=== PATIENT | female | born 1950 | race Caucasian/White ===

== ENCOUNTER → 2016-12-20 10:22 | Outpatient (CLI) | payer MEDICARE, OTHER | END | disposition home or self-care (01) | LOC: D.NM 10:22 | DX: E05.90 Thyrotoxicosis, unspecified without thyrotoxic crisis or storm (principal) ==

== ENCOUNTER → 2017-02-07 13:11 | Outpatient (CLI) | payer MEDICARE, OTHER | END | disposition home or self-care (01) | LOC: D.US 13:11 | DX: I12.9 Hypertensive chronic kidney disease with stage 1 through stage 4 chronic kidney disease, or unspecified chronic kidney disease (principal); N18.3 Chronic kidney disease, stage 3 (moderate); M19.90 Unspecified osteoarthritis, unspecified site; K21.9 Gastro-esophageal reflux disease without esophagitis; Z68.30 Body mass index [BMI] 30.0-30.9, adult ==

== ENCOUNTER → 2017-02-20 09:24 | Outpatient (CLI) | payer MEDICARE, OTHER | END | disposition home or self-care (01) | LOC: D.CT 09:24 | DX: N13.30 Unspecified hydronephrosis (principal); R93.429 Abnormal radiologic findings on diagnostic imaging of unspecified kidney ==

== ENCOUNTER → 2017-04-26 12:35 | Outpatient (CLI) | payer MEDICARE, OTHER | END | disposition home or self-care (01) | LOC: D.NM 04-25 14:00 | DX: N13.30 Unspecified hydronephrosis (principal) ==

== ENCOUNTER → 2017-05-16 05:18 | Day surgery (SDC) | payer MEDICARE, OTHER ==
[2017-05-15 09:15] LABS: HEMATOCRIT 42.7 % (36.0-48.0); HEMOGLOBIN 14.4 g/dL (12-16); MCH 28.6 pg (26.0-34.0); MCHC 33.7 g/dL (31.0-37.0); MCV 84.9 fL (80.0-100.0); MEAN PLATELET VOLUME 9.3 fL (7.4-10.4); RBC 5.03 10x6/uL (4.00-5.40); RDW 14.1 % (11.5-14.5); WBC 9.1 10x3/uL (4.8-10.8)
[2017-05-15 09:39] LABS: ANION GAP 11.1 mmol/L (8-16); CALCIUM 9.3 mg/dL (8.5-10.1); CARBON DIOXIDE 28.9 mmol/L (21.0-32.0); CREATININE - SERUM 1.2 mg/dL (0.6-1.3)
[~2017-05-16] VITALS: Ht 162.6 cm; Wt 78.5 kg
--- NOTE | ~2017-05-16 | OP ---
PATIENT NAME: RENAE FLANNERY MEDICAL RECORD: [id number] :46 LOCATION:[facility] ADMISSION DATE: SURGEON: GEMMA RIDLEY MD DATE OF OPERATION: 05/16/2017 SURGEON: Gemma Ridley MD ANESTHESIA: General anesthesia by Néstor Martinez CRNA PREOPERATIVE DIAGNOSES: Female stress urinary incontinence, midline cystocele Cadwell walker grade II, rectocele Cadwell walker grade I. PROCEDURE: Cystoscopy, cystocele repair with graft -- Breezewood Uphold, and then pubovaginal sling with graft B[employer]zewood Obtryx. FINDINGS: On cystoscopy single ureteral orifices bilaterally. No bladder tumors. No bladder injury. BLOOD LOSS: 15 mL. CLINICAL HISTORY: This is a 66-year-old female, A0, who has a complaint of female stress urinary incontinence. 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 A positive Rolly test was noted. She also has a grade II cystocele, no obvious uterine descent and a very mild grade I rectocele. Because the rectocele is not causing any symptoms, we did not repair it. She comes today to have the cystocele and stress incontinence repaired using mesh graft. She is aware of the risks of mesh graft use including infection, bleeding, dyspareunia, pain, injury to adjacent organs such as graft erosion or graft exposure. She is not allergic to any medications. She is given ampicillin/sulbactam 3 grams IV pinion and wheel truer to the OR. DESCRIPTION OF PROCEDURE: The patient was given induction of general anesthesia. She was then placed into dorsal lithotomy position and prepped and draped. A weighted speculum was placed to hold down the posterior vaginal wall. A 16-Yi Valdez catheter was placed into the bladder and put to bag drainage. The labia majora were retracted laterally using #2 nylon sutures, which were anchored to the medial thighs. Due to her vaginal stenosis, there was very limited working space in the vaginal cavity. A transverse incision was made about 1 cm proximal to the urethral meatus on the anterior vaginal wall. Prior to making this incision, the anterior vaginal wall was infiltrated with Pitressin solution. Twenty units of Pitressin was dissolved in 100 cc of injectable saline. This solution was used for hydrodissection. Once the incision was made, then the vaginal mucosal flaps were raised using Metzenbaum scissors. Anteriorly, we entered into the space of Retzius. We also cleaned off by breaking through the pubocervical fascia. We cleaned off the obturator membrane surface. Posteriorly, we entered into the presacral space and identified the ischial spines on both sides, which were the anchorage points to the sacrospinous ligaments. The ischial spine on the right side was much more difficult to find. Once this dissection was complete, we then proceeded with our cystocele repair. The Breezewood Uphold graft has a suture on each graft arm. This was loaded on to the [employer] suture delivery route driver. Land marking with the Capio had at the ischial spine. We then moved the [employer] suture delivery route driver, had 1 cm medial away from the ischial OPERATIVE REPORT [id number] RENAE FLANNERY spine to take a bite through the body of the sacrospinous ligament. The reason for moving away from the ischial spine is to avoid the internal pudendal arteries and the pudendal nerve, which wrapped around the ischial spine. This was done on each side. A good bite was obtained on each side as evidenced by putting traction on the suture and noting that there was no tearing of the tissues. Once the graft arms were pulled through sufficiently the mid apical point of the graft was sutured to the cervical neck using a 2-0 Vicryl in a simple interrupted suture. The graft arms were then pulled further through in order to fully reduce the cystocele. This left the distal apex of the graft under the bladder neck. A 2-0 Vicryl stay suture was placed here to prevent the graft from shifting its position. We then landmarked for the placement of the pubovaginal sling. The entry point was just inferior to the insertion of the adductor longus muscle on to the descending pubic ramus. Point was made here at each side of the groin with a marking pen. A small stab incision was made using a #15 blade. The helical trocars from the Obtryx graft were placed in transobturator fashion. The trocar was placed through our point and then wrapped posterior to the descending pubic ramus and out through the apex of the obturator membrane. The Obtryx graft arm was then clipped to the tip of the trocar and the trocars were withdrawn to result in transobturator membrane passage of the Obtryx graft arms. All the graft arms were still attached to their respective devices. We then removed the Valdez catheter and performed cystoscopy using a 17-Yi scope and 30-degree lens. No bladder injury was seen. While the bladder was being observed, the bladder was being filled to capacity using the cystoscopic irrigation fluid. Once the scope was removed, we could see a stream of urine coming out of the urethra. Tension was applied on to the pubovaginal sling graft arms until its flow ceased. I refilled the bladder again through the cystoscope and again watched for leakage per the urethra. Enough tension was applied, so that no leakage was seen even with some suprapubic pressure to simulate coughing. The sling was completely flat under the mid urethra with no puckering or no twisting of the graft. At this point, all the graft arms had their wrapping sheath material removed and then the graft arm excess lengths were cut off. The pubovaginal sling graft arms were cut off where they exited the groin incisions. The graft arms were then tucked to make sure that the ends would stay in the subcutaneous tissue. Wounds were irrigated out using normal saline. The vaginal incision was closed using running 4-0 Monocryl. Dermabond was applied to the groin incisions. Vaginal packing was placed into the vagina and the Valdez catheter was then removed. The vaginal packing was removed prior to the patient going home. We will make sure that the patient can void prior to going home also. TRANSINT:[id number] Voice Confirmation ID: [id number] DOCUMENT ID: [id number] GEMMA RIDLEY MD at 1353 CC: [id number] DICTATION DATE: 05/16/17 1157 EDUCATIONAL PARAPROFESSIONAL: 05/16/17 1222 REG [facility] [address] [place] [address]
[~2017-05-16 05:18] MED LIST: NORVASC5 MG PO; OMEPRAZOLE40 MG PO; VITAMIN D31000 UNI2 PO; ZESTRIL20 MG PO
[2017-05-16 08:16] VITALS: BP 135/79; Ht 162.6 cm; Wt 78.5 kg
== END | disposition home or self-care (01) ==
LOC: D.OPS 05:18 → D.PAN 08:30 → D.OPS 09:15 → D.PAN 09:15
PROVIDERS: Anesthesiology
DX: N39.3 Stress incontinence (female) (male) (principal); N81.11 Cystocele, midline; N81.6 Rectocele; Z01.812 Encounter for preprocedural laboratory examination

== ENCOUNTER → 2020-01-05 16:00 | Outpatient (CLI) | payer MEDICARE, OTHER ==
[2017-05-16 08:16] VITALS: BMI 29.7
== END ==
LOC: D.MAMMO 13:00
PROVIDERS: ATTEND Family Medicine
DX: N63.15 Unspecified lump in the right breast, overlapping quadrants (principal); I12.9 Hypertensive chronic kidney disease with stage 1 through stage 4 chronic kidney disease, or unspecified chronic kidney disease; N18.30 Chronic kidney disease, stage 3 unspecified; K21.9 Gastro-esophageal reflux disease without esophagitis; E03.9 Hypothyroidism, unspecified